=== PATIENT | female | born 1980 | race African-American/Black ===

== ENCOUNTER 2025-04-04 00:15 | Day surgery (SDC) | payer OTHER, SELFPAY ==
--- NOTE | 2025-03-28 12:42 | SUR.PREOP ---
[facility] has started construction of its new state of the art ER which will open Spring 2026. With this, we anticipate parking may be a challenge for some our surgical patients and families. Parking spaces are limited but are available for all Surgical, obstetrics, and ER patients sharing this lot. If you arrive and find you are having a hard time finding a parking space, please note that we understand the challenges, please drive around the hospital and park near Hospital Entrance 1. When you enter this entrance, you can ask a volunteer to direct or take you back to the surgical waiting area to check in. We appreciate everyone?s understanding of these expected challenges while we build for your future. Report to the Outpatient Waiting Room, entrance under the green pavilion located off [address], at time _830AM___ on date _04/04/25_. Planned Procedure Time:__1030AM__.? Time changes happen often and if your time is changed the preop area will call you the afternoon before. - You and your visitor will be asked to self-screen and do not enter if you have any COVID symptoms. Please call surgeon if you need to reschedule. - A mask is optional within the hospital at this time. Patients may have clear liquids (water, carbonated beverages, clear teas, apple juice) until 3 hours prior to surgery with a maximum of 20 ounces. - No food from midnight until time of surgery and no smoking, or chewing tobacco (or any form of nicotine). No chewing gum, candy or mints. Take only the following medications with a SIP of water on the morning of surgery: none DO NOT STOP ANY OF YOUR OTHER PRESCRIPTION MEDICATIONS PRIOR TO SURGERY EXCEPT THE FOLLOWING Hold all vitamins and supplements for 3 days per anesthesiologist. Medications to discontinue per physician ___none Date to take last dose__n/a Please no make-up, nail romansh, hairspray, perfume, deodorant, or body powder the day of surgery.? No jewelry (including any body piercings) or valuables the day of surgery, leave them at home.? Please take a shower or bath the night before, or the morning of, surgery with an antibacterial soap.? Wear comfortable, loose fitting clothing.? - Jewelry must be removed prior to entering the operating room.? Rings and piercings that are not removed may be cut off. - The hospital will not accept responsibility for valuables.? - Please leave all valuables, including medications, at home the day of surgery. If you are going home after surgery, a licensed drive away driver must drive you home.? - NO public transportation without another adult if you receive anesthesia. - We recommend that an adult stay with you for 24 hours following discharge. - We also recommend that you do not drive, make important decision, drink alcoholic beverages, or take any drugs that were not prescribed by your health care provider for at least 24 hours after your discharge time. Follow any additional instructions given to you from your surgeon. Telephone instructions given to __Manisha___and asked if any additional questions and then verbalized understanding. Patient advised to call surgeon office or pre surgery nurse liaison [phone] if any additional questions.
[2025-03-28 12:44] VITALS: BMI 33.3
[2025-04-04] VITALS (9 sets, daily range): BP systolic 118–137; BP diastolic 69–89; PULSE 61–79; RESP 10–16; TEMP 36.4–37.2; O2SAT 98–100; BMI 39.2
--- OUTSIDE RECORDS SUMMARY | 2025-04-04 00:18 | XMS_ITS | Clinical Summary ---
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
--- OUTSIDE RECORDS SUMMARY | 2025-04-04 00:18 | XMS_ITS | Clinical Summary ---
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 Name Role Phone Referring, Unknown MD Primary Care Provider Unav ailable Medications ibuprofen (ibuprofen) 200 mg tab/cap take 1 capsule by oral route every 6 hours as needed 0 0 09/15/2016 Active Family History Medical History Relation Name Comments Arthritis Other Family history of Arthritis; Cancer Other Family history of Cancer, unknown; Diabetes Other Family history of Diabetes mellitus; Gout Other Family history of Gout; Hypertension Other Family history of Hypertension; Kidney disease Other Family histor y of kidney problems; Seizures Other Family history of Seizure disorder; Relation Name Status Comments Other Social History Tobacco Use Types Packs/Day Years Used Date Smoking Tobacco: Never Assessed Comments Unknown Sex and Gender Information Value Date Recorded Sex Assigned at Not on file Legal Sex Female 9:33 AM CDT Gender Identity Not on file Sexual Orientation Not on file Obstetrics History Last Filed Vital Signs Vital Sign Reading Time Taken Comments Blood Pressure 119/83 01/16/2018 5:39 PM CDT Pulse 87 01/16/2018 5:39 PM CDT Temperature 36.8 C (98.3 F) 01/16/2018 5:39 PM CDT Respiratory Rate - - Oxygen Saturation 98% 01/16/2018 5:39 PM CDT Inhaled Oxygen Concentration - - Weight 99.8 kg (220 lb) 01/16/2018 5:39 PM CDT Height 170.2 cm (5' 7) 01/16/2018 5:39 PM CDT Body Mass Index 34.46 01/16/2018 5:39 PM CDT Plan of Treatment Health Maintenance Due Date Last Done Comments Breast Cancer Screening-Mammogram 1981 Cervical Cancer Screening 1981 Depression Screening 1981 Hepatitis C Screening 1981 DTaP/Tdap/Td Vaccine (1 - Tdap) 1992 Varicella Vaccines (1 of 2 - 13+ 2-dose series) 1994 Hepatitis B Screening 12/01/1999 Regular Well Visit/Exam 18-64 12/01/1999 HPV Vaccines (1 - 3-dose SCD M series) 2008 Covid-19 Vaccine (3 - 2024-2 6 season) 2025 02/20/2021, 01/30/2021 Influenza Vaccine (#1) 2025 Pneumococcal vaccine <65 Aged Out No longer eligible based on patient's age to complete this topic Insurance IDPA Care Teams Fuel Quality Tech Relationship Specialty Start Date End Date Referring, Unknown, PCP - General Pediatrics 02/12/18
--- OUTSIDE RECORDS SUMMARY | 2025-04-04 00:18 | XMS_ITS | Data Portability ---
Author Organization [facility], [facility] Address [address] [place] [address] [place] [address] Care Team Providers Care Blind Lacer Name Role Phone VANESSA TERRY Primary Care Provider Assessment No assessment recorded. Plan of Treatment Reminders Order Date Submit Date Provider Last Modified By Organization Details Last Modified Time Details Appointments SURG Salpingec heike 2024 10:30A Hadley GORDON MD Not available Not available Not available SURG POST OP 2024 03:30P Hadley GORDON MD Not available Not available Not available Lab test, urine 2024 025 [facility], [address], [address], [place], [address], 02/20/2025 10:09:34 unlisted lab - women's health swab, OMKAR 2024 025 [facility] (Lab), [address], [place], [address], 01/25/2025 15:58:37 25-hydrox yvitamin D2 + 25-hydrox yvitamin D3, QN, serum or plasma 2024 025 [facility] (Lab), [address], [place], [address], 01/25/2025 15:58:36 CBC w/ auto diff 2024 025 [facility] (Lab), [address], [place], [address], 01/25/2025 15:58:35 TSH, serum or plasma 2024 025 [facility] (Lab), [address] [facility], [place], [address], 01/25/2025 15:58:36 hormone panel, serum or plasma 2024 025 [facility] (Lab), [address] [facility], [place], [address], 01/25/2025 15:58:37 test, urine 2024 025 [facility], [address], [address], [place], [address], 01/24/2025 17:00:12 urinalysi s, dipstick 2023 024 [facility], [address], [address], [place], [address], 01/04/2024 17:03:55 test, urine [email or web address], [address], [address], [place], [address], 01/04/2024 15:59:44 Referral None recorded. Procedures None recorded. Surgeries None recorded. Imaging US, pelvis [address], [address], [address], [place], [address], 02/02/2025 22:40:51 US, transvagi nal [address], [address], [address], [place], [address], 02/02/2025 22:40:51 Medication Orders Slynd 4 mg (28) tablet 2024 025 [facility] #[id number], [address], [place], [place], [id number], 02/17/2025 12:21:16 nystatin 100,000 unit/gram topical ointment 2024 025 [facility] #[id number], [address], [place], [place], [id number], 01/24/2025 17:07:20 triamcino lone acetonide 0.1 % topical ointment 2024 025 [facility] #[id number], [address] [facility], [place], [place], [phone], 01/24/2025 17:07:19 fluconazo le 150 mg tablet 2024 025 [facility] #[id number], [address] [facility], [place], [place], [id number], 02/07/2025 17:22:13 Mirena 21 mcg/24 hr (up to 8 years) 52 mg intrauter ine device 2023 024 [email or web address] Not available 01/04/2024 16:32:18 Patient TargetsNo targets recorded. Patient InstructionsNo instructions recorded. Reason for Referral None Reported. Results Created Date Observation Date Name Description Value Unit Range Abnormal Flag Note LastModifiedBy Organization Detail LastModifiedTime 01/04/2001/04/2024 CT/GC AND TRICH OMONA S VAGIN RANJAN (RRNA ), URINE chlamydia trachomatis, PCR Negati ve negati ve Not Available [facility] (Lab) [address], [place], [address], 01/05/2024 15:16:48 01/04/20 24 01/04/2024 CT/GC AND TRICH OMONA S VAGIN RANJAN (RRNA ), URINE neisseria gonorrhoeae, PCR Negati ve negati ve Not Available [facility] (Lab) [address], [place], [address], 01/05/2024 15:16:48 01/04/20 24 01/04/2024 CT/GC AND TRICH OMONA S VAGIN RANJAN (RRNA ), URINE trichomonas vaginalis ribosomal RNA (rrna) Negati ve negati ve Not Available [facility] (Lab) [address], [place], [address], 01/05/2024 15:16:48 01/04/20 24 01/04/2024 pregn eric test, urine HCG negati ve Not Available [facility] [address], [place], [address], 01/04/2024 15:48:08 01/25/20 25 01/24/2025 CBC W/DIF F WBC 7.4 10'3/ uL 3.5-10 .5 Not Available [facility] (Lab) [address], [place], [address], 01/25/2025 15:58:35 01/25/20 25 01/24/2025 CBC W/DIF F RBC 4.45 10'6/ uL (based on docume nted legal sex) 3.80-5 .20 Not Available [facility] (Lab) [address], [place], [address], 01/25/2025 15:58:35 01/25/20 25 01/24/2025 CBC W/DIF F HGB 12.6 g/dL (based on docume nted legal sex) 11.6-1 5.4 Not Available [facility] (Lab) [address], [place], [address], 01/25/2025 15:58:35 01/25/20 25 01/24/2025 CBC W/DIF F HCT 36.1 % (based on docume nted legal sex) 34.0-4 5.0 Not Available [facility] (Lab) [address], [place], [address], 01/25/2025 15:58:35 01/25/20 25 01/24/2025 CBC W/DIF F MCV 81.1 fL 80.0-9 9.0 Not Available [facility] (Lab) [address], [place], [address], 01/25/2025 15:58:35 01/25/20 25 01/24/2025 CBC W/DIF F MCH 28.3 pg 27.0-3 4.0 Not Available [facility] (Lab) [address], [place], [address], 01/25/2025 15:58:35 01/25/20 25 01/24/2025 CBC W/DIF F MCHC 34.9 g/dL 32.0-3 5.5 Not Available [facility] (Lab) [address], [place], [address], 01/25/2025 15:58:35 01/25/20 25 01/24/2025 CBC W/DIF F RDW 13.3 % 11.0-1 5.0 Not Available [facility] (Lab) [address], [place], [address], 01/25/2025 15:58:35 01/25/20 25 01/24/2025 CBC W/DIF F plt 295 10'3/ uL 150-40 0 Not Available [facility] (Lab) [address], [place], [address], 01/25/2025 15:58:35 01/25/20 25 01/24/2025 CBC W/DIF F MPV 11.3 fL 8.8-12 .1 Not Available [facility] (Lab) [address], [place], [address], 01/25/2025 15:58:35 01/25/20 25 01/24/2025 CBC W/DIF F NRBC's 0.0 % 0.0 Not Available [facility] (Lab) [address], [place], [address], 01/25/2025 15:58:35 01/25/20 25 01/24/2025 CBC W/DIF F absolute NRBCs 0.0 10'3/ uL no refere nce range establ ished Not Available [facility] (Lab) [address] [facility], [place], [address], 01/25/2025 15:58:35 01/25/20 25 01/24/2025 CBC W/DIF F neutrophils 43.7 % 34.0-7 3.0 Not Available [facility] (Lab) [address] [facility], [place], [address], 01/25/2025 15:58:35 01/25/20 25 01/24/2025 CBC W/DIF F lymphocytes 43.6 % 15.0-5 0.0 Not Available [facility] (Lab) [address] [facility], [place], [address], 01/25/2025 15:58:35 01/25/20 25 01/24/2025 CBC W/DIF F monocytes 10.8 % 1.0-15 .0 Not Available [facility] (Lab) [address] [facility], [place], [address], 01/25/2025 15:58:35 01/25/20 25 01/24/2025 CBC W/DIF F eosinophils 0.9 % 0.0-8. 0 Not Available [facility] (Lab) [address] [facility], [place], [address], 01/25/2025 15:58:35 01/25/20 25 01/24/2025 CBC W/DIF F basophils 0.7 % 0.0-2. 0 Not Available [facility] (Lab) [address] [facility], [place], [address], 01/25/2025 15:58:35 01/25/20 25 01/24/2025 CBC W/DIF F immature granulocytes 0.3 % no define d refere nce range Immat ure Granu locyt es (IG) repre sents autom ated enume ratio n of Metam yeloc ytes, Myelo cytes and Promy elocy hammad when IG is < 5%. Blast s are not inclu ded in IG and repor stacie separ ately if prese nt. Not Available [facility] (Lab) [address] [facility], [place], [address], 01/25/2025 15:58:35 01/25/20 25 01/24/2025 CBC W/DIF F absolute neutrophils 3.2 10'3/ uL 1.5-8. 0 Not Available [facility] (Lab) [address] [facility], [place], [address], 01/25/2025 15:58:35 01/25/20 25 01/24/2025 CBC W/DIF F absolute lymphocytes 3.2 10'3/ uL 1.0-4. 0 Not Available [facility] (Lab) [address] [facility], [place], [address], 01/25/2025 15:58:35 01/25/20 25 01/24/2025 CBC W/DIF F absolute monocytes 0.8 10'3/ uL 0.2-1. 0 Not Available [facility] (Lab) [address] [facility], [place], [address], 01/25/2025 15:58:35 01/25/20 25 01/24/2025 CBC W/DIF F absolute eosinophils 0.1 10'3/ uL 0.0-0. 6 Not Available [facility] (Lab) [address] [facility], [place], [address], 01/25/2025 15:58:35 01/25/20 25 01/24/2025 CBC W/DIF F absolute basophils 0.1 10'3/ uL 0.0-0. 3 Not Available [facility] (Lab) [address] [place], [address], 01/25/2025 15:58:35 01/25/20 25 01/24/2025 CBC W/DIF F absolute immature granulocytes 0.0 10'3/ uL 0.00-0 .10 Refer ence range s for nonbi nary/ inter sex or unspe cifie d gende r patie nts have not been estab lishe d. Mayi e refer to the follo wing table for range s estab lishe d for cisge nder patie nts and evalu ate in the clini sadie linda xt of the indiv idual patie nt: https ://kareem and book. nm.or g/gen derx Not Available [facility] (Lab) [address] [facility], [place], [address], 01/25/2025 15:58:35 01/25/2001/24/2025 TSH, REFLE X FREE T4 TSH 2.34 uIU/m L 0.30-5 .33 Not Available [facility] (Lab) [address] [facility], [place], [address], 01/25/2025 15:58:36 01/25/20 25 01/24/2025 VITAM IN D, 25-OH (TOTA L D2/D3 ) vitamin D, 25-hydroxy, total 17.7 NG/mL 30.0-1 00.0 low Sugge stive of Defic iency : <20 ng/mL Sugge stive of Insuf ficie ncy: 20-29 ng/mL Sugge stive of Suffi cienc y: 30-10 0 ng/mL Sugge stive of Toxic ity: >150 ng/mL Not Available [facility] (Lab) [address] [facility], [place], [address], 01/25/2025 15:58:36 01/25/20 25 01/24/2025 FSH, LH, ESTRA DIOL estradiol 85.8 pg/mL This assay was perfo rmed using [employer] ratio n reage nts and test kits. Value s obtai zhanna with other assay metho ds or kits canno t be used inter holt eably . Femal e Estra diol Range s: Folli cular phase 12.4- 233 pg/mL Ovula tion phase 41.0- 398 pg/mL Lutea l phase 22.3- 341 pg/mL Postm enopa usal <5-13 8 pg/mL Healt hy Pregn ant Women 1st Trime ster 154-3 243 pg/mL 2nd Trime ster 1561- 67778 pg/mL 3rd Trime ster 8525- >3000 0 pg/mL Not Available [facility] (Lab) [address] [facility], [place], [address], 01/25/2025 15:58:36 01/25/20 25 01/24/2025 FSH, LH, ESTRA DIOL FSH 2.0 mIU/m L This assay was perfo rmed using [employer] reage nts and test kits. Value s obtai zhanna with other assay metho ds or kits canno t be used inter holt eably . Femal es Folli cular : 3.5-1 2.5 mIU/m L Ovula tion: 4.7-2 1.5 mIU/m L Lutea l: 1.7-7 .7 mIU/m L Postm enopa use: 25.8- 134.8 mIU/m L Not Available [facility] (Lab) [address] [facility], [place], [address], 01/25/2025 15:58:36 01/25/20 25 01/24/2025 FSH, LH, ESTRA DIOL LH 6.0 mIU/m L This assay was perfo rmed using [employer] reage nts and test kits. Value s obtai zhanna with other assay metho ds or kits canno t be used inter holt eably . Femal es Mid-F ollic ular: 2.4-1 2.6 mIU/m L Mid-C ycle: 14.0- 95.6 mIU/m L Mid-L uteal : 1.0-1 1.4 mIU/m L Postm enopa use: 7.7-5 8.5 mIU/m L Not Available [facility] (Lab) [address] [facility], [place], [address], 01/25/2025 15:58:36 01/25/20 25 01/24/2025 WOMEN 'S HEALT H SWAB, OMKAR bacterial vaginosis (bv), tma Negati ve negati ve This test detec ts ribos omal RNA from bacte mich assoc iated with bacte rial vagin osis (BV), inclu ding Lacto bacil chance (L. gasse ri, L. crisp atus and L. jense wale), Gardn erell a vagin ranjan, and Atopo bium vagin ae by Trans cript ion-M ediat ed Ampli ficat ion (TMA) . A singl e quali tativ e resul t is repor stacie based on instr ument softw are to deter mine BV posit radha or negat radha statu s. Not Available [facility] (Lab) [address] [facility], [place], [address], 01/25/2025 15:58:37 01/25/20 25 01/24/2025 WOMEN 'S HEALT H SWAB, OMKAR kimmie species, tma Positi ve negati ve abnormal Not Available [facility] (Lab) [address] [facility], [place], [address], 01/25/2025 15:58:37 01/25/20 25 01/24/2025 WOMEN 'S HEALT H SWAB, OMKAR kimmie glabrata, tma Negati ve negati ve Not Available [facility] (Lab) [address] [place], [address], 01/25/2025 15:58:37 01/25/20 25 01/24/2025 WOMEN 'S HEALT H SWAB, OMKAR trichomonas vaginalis, tma Negati ve negati ve This assay tests for and diffe renti ates siddharth en Enma da glabr janes, the Enma da speci es group (C. albic ans, C. tropi calis , C. parap eva is, C. dubli ni is), and Trich omona s vagin ranjan by Trans cript ion-M ediat ed Ampli ficat ion (TMA) . Not Available [facility] (Lab) [address], [place], [address], 01/25/2025 15:58:37 01/25/2001/24/2025 pregn eric test, urine HCG negati ve Not Available [facility] [address], [place], [address], 01/24/2025 17:00:05 02/21/2002/20/2025 pregn eric test, urine HCG negati ve Not Available [facility] [address], [place], [address], 02/20/2025 10:07:43 02/03/20 25 02/02/2025 US, pelvi s No observ ation record ed. [email or web address] [facility] [address], [place], [address], 02/02/2025 18:28:18 02/03/20 25 02/02/2025 US, trans vagin al No observ ation record ed. [email or web address] [facility] [address], [place], [address], 02/02/2025 18:28:27 02/03/20 25 02/02/2025 US, pelvi s No observ ation record ed. tracee Knowles [address], [place], [address], 02/09/2025 11:20:41 Result Notes None recorded. Problems Name Problem SNOMED Code Status Onset Date Resolution Date Notes Provider Name and Address Organization Details Recorded Time Leukopen ia [id number] Completed 201006/13/2020 LEUKOCYT OPENIA NOS;Prac srinivas ID: 0001 Lucrecia reddy [place] - [facility] 10:27:47 Abnormal weight gain [id number] Completed 201006/13/2020 Abnormal weight gain;Rec orded Elsewher e: No [facility] EHR Customer Quality Engineer suze: N Practi ce ID: [id number] Reji lable Time: 10:30:00 AM Lucrecia reddy, [facility] 10:27:13 Screenin g for malignan t neoplasm of cervix Completed 201006/13/2020 Screenin g for malignan t neoplasm s of the cervix;R ecorded Elsewher e: No Locat ion: [facility] S ource: EHR Customer Quality Engineer suze: N Practi ce ID: [id number] Reji lable Time: 10:30:00 AM Lucrecia reddy, [facility] 10:28:04 Ill-defi zhanna intestin al infectio n Completed 201106/13/2020 No Show Fee;Prac srinivas ID: 0001 Lucrecia Eisenberg [facility], [facility] 10:27:38 Adult health examinat ion Completed 201106/13/2020 Routine Medical Exam;Rec orded Elsewher e: No Locat ion: [facility] S ource: EHR Customer Quality Engineer suze: N Practi ce ID: [id number] Reji lable Time: 08:58:00 AM Lucrecia reddy, [facility] 10:27:19 Vaginiti s and vulvovag initis Completed 201106/13/2020 Vaginiti s;Record ed Elsewher e: No Locat ion: [facility] S ource: EHR Customer Quality Engineer usze: N Practi ce ID: [id number] Reji lable Time: 08:58:00 AM Lucrecia reddy, [facility] 10:28:20 Pain of breast [id number] Completed 201106/13/2020 Mastodyn ia;Recor ded Elsewher e: No Locat ion: [facility] S ource: EHR Customer Quality Engineer suze: Y Practi ce ID: [id number] Reji lable Time: 03:15:00 PM Lucrecia reddy [facility] 10:27:55 Leukocyt osis [id number] Completed 201206/13/2020 LEUKOCYT OSIS NOS;Ba rded Elsewher e: No Locat ion: [facility] S ource: EHR Customer Quality Engineer suze: Baljit Lozano ce ID: [id number] Reji lable Time: 03:45:00 PM Lucrecia reddy [facility] 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 S ource: EHR Customer Quality Engineer suze: Baljit Lozano ce ID: [id number] Reji lable Time: 02:15:00 PM Lucrecia Eisenberg [facility] 10:27:22 Venereal disease screenin g Completed 201306/13/2020 Screenin g exam for STD;Ba rded Elsewher e: No Locat ion: [facility] S ource: EHR Customer Quality Engineer suze: Baljit Lozano ce ID: [id number] Reji lable Time: 11:30:00 AM Lucrecia reddy [facility] 10:28:22 Urinary tract infectio us disease [id number] Completed 201306/13/2020 UTI;Ba rded Elsewher e: No Locat ion: [facility] S ource: EHR Customer Quality Engineer suze: Baljit Lozano ce ID: [id number] Reji lable Time: 09:15:00 AM Lucrecia reddy [facility] 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 1 10:27:49 Increase d frequenc y of urinatio n [id number] Completed 201306/13/2020 Urinary frequenc y;Record ed Elsewher e: No Locat ion: [facility] S ource: EHR Customer Quality Engineer suze: N Practi ce ID: [id number] Reji lable Time: 09:15:00 AM Lucrecia Elgin [facility], [facility] 10:27:41 Removal of intraute rine device Completed 201306/13/2020 REMOVAL OF IUD;Ba rded Elsewher e: No [facility]: EHR Customer Quality Engineer suze: N Thierryti ce ID: [id number] Reji lable Time: 10:36:00 AM Lucrecia Elgin [facility], [facility] 10:28:03 Threaten ed miscarri age [id number] Completed 201306/13/2020 Threaten ed ;Recorde d Elsewher e: No [facility] ource: EHR Customer Quality Engineer suze: N Practi ce ID: [id number] Reji lable Time: 10:36:00 AM Lucrecia Elgin reddy, [facility] 1 10:28:16 Antenata l screenin g Completed 201306/13/2020 ANTENATA L SCREENIN G NEC;Ba rded Elsewher e: No [facility]: EHR Customer Quality Engineer suze: N Thierryti ce ID: [id number] Reji lable Time: 09:15:00 AM Lucrecia reddy, [facility] 10:27:20 Female genital organ symptoms [id number] Completed 201306/13/2020 Pelvic pain;Rec orded Elsewher e: No Locat ion: [facility] S ource: EHR Customer Quality Engineer suze: N Thierryti ce ID: 0001 Reji lable Time: 10:36:00 AM Lucrecia reddy, [facility] 10:27:33 Pregnanc y test positive [id number] Completed 201306/13/2020 Pregnanc y examinat ion or test, positive result;R ecorded Elsewher e: No Locat ion: [facility] S ource: EHR Customer Quality Engineer suze: Baljit Lozano ce ID: [id number] Reji lable Time: 09:15:00 AM Lucrecia reddy, [facility] 10:27:59 Completed 201306/13/2020 ;Recorde d Elsewher e: No Locat ion: [facility] S ource: EHR Customer Quality Engineer suze: Baljit Lozano ce ID: [id number] Reji lable Time: 04:00:00 PM Lucrecia reddy, [facility] 10:27:15 Pyelonep hritis [id number] Completed 201406/13/2020 Pyelonep hritis;R ecorded Elsewher e: No Locat ion: [facility] S ource: EHR Customer Quality Engineer suze: N Thierryti ce ID: [id number] Reji lable Time: 04:00:00 PM Lucrecia reddy [facility] 10:28:01 Pregnanc y test negative [id number] Completed 201406/13/2020 Pregnanc y examinat ion or test, negative result;R ecorded Elsewher e: No Locat ion: [facility] S ource: EHR Customer Quality Engineer suze: Baljit Lozano ce ID: [id number] Reji lable Time: 04:00:00 PM Lucrecia reddy, [facility] 10:27:57 Speciali zed medical examinat ion Completed 201406/13/2020 Gynecolo gical Examinat ion;Ba rded Elsewher e: No Locat ion: [facility] S ource: EHR Customer Quality Engineer suze: N Thierryti ce ID: 0001 Reji lable Time: 02:00:00 PM Lucrecia reddy, [facility] 1 10:28:10 Family planning surveill ance Completed 201406/13/2020 Contrace ptive surveill ance, unspecif ied;Ba rded Elsewher e: No Locat ion: [facility] S ource: EHR Customer Quality Engineer suze: N Blake ce ID: [id number] Reji lable Time: 11:45:00 AM Lucrecia reddy, [facility] 10:27:31 Microsco pic hematuri a [id number] Completed 201406/13/2020 MICROSCO PIC HEMATURI A;Record ed Elsewher e: No Locat ion: [facility] S ource: [facility] suze: Baljit Lozano ce ID: [id number] Reji lable Time: 11:45:00 AM Lucrecia reddy [facility] 10:27:53 Clinical finding Completed 201406/13/2020 Encounte r for surveill ance of injectab le contrace ptive;Pr actice ID: [id number] Lucrecia reddy, [facility] 10:27:24 Contrace ptive sheath status [id number] Completed 201506/13/2020 Encounte r for initial prescrip tion of other contrace ptives;R ecorded Elsewher e: No Locat ion: [facility] S ource: EHR Customer Quality Engineer suze: N Practi ce ID: [id number] Reji lable Time: 03:45:00 PM Lucrecia reddy [facility] 1 10:27:27 Clinical finding Completed 201506/13/2020 Presence of (intraut erine) contrace ptive device;R ecorded Elsewher e: No Locat ion: Raquel batista [facility] S ource: EHR Customer Quality Engineer suze: N Practi ce ID: [id number] Reji lable Time: 01:30:00 PM Lucrecia reddy, [facility] 1 10:27:26 Insertio n of intraute rine contrace ptive device Completed 201506/13/2020 Encounte r for insertio n of intraute rine contrace ptive device;P ractice ID: [address] [facility] 10:27:44 Surveill ance of contrace ption Completed 201506/13/2020 Encounte r for surveill ance of contrace ptives, unspecif ied;Ba rded Elsewher e: No [facility] S ource: EHR Customer Quality Engineer suze: N Thierryti ce ID: [id number] Reji lable Time: 11:00:00 AM Lucrecia reddy [facility] 10:28:13 Pain in female genitali a Completed 201506/13/2020 Dysmenor vaishnavi;Rec orded Elsewher e: No Locat ion: [facility] S ource: EHR Customer Quality Engineer suze: N Practi ce ID: [id number] Reji lable Time: 01:15:00 PM Lucrecia reddy [facility] 10:27:[address] Concept Completed 201606/13/2020 Encntr for salmon troll fisher exam (general ) (routine ) w/o abn findings ;Recorde d Elsewher e: No Locat ion: [facility] S ource: EHR Customer Quality Engineer suze: N Thierryti ce ID: [id number] Reji lable Time: 11:30:00 AM Lucrecia reddy [facility] 1 10:28:[address] Concept Completed 201606/13/2020 Encntr for general adult medical exam w/o abnormal findings ;Recorde d Elsewher e: No Locat ion: [facility] S ource: EHR Customer Quality Engineer suze: N Thierryti ce ID: 0001 Reji lable Time: 11:30:00 AM Lucreciajenny Eisenberg [facility] 1 10:28:06 Acute vaginiti s [id number] Completed 201706/13/2020 Acute vulvovag initis;R ecorded Elsewher e: No Locat ion: [facility] S ource: EHR Customer Quality Engineer suze: N Thierryti ce ID: 0001 Reji lable Time: 10:30:00 AM Lucrecia reddy [facility] 1 10:27:17 Blood leukocyt e number above referenc e range [id number] Completed 201806/13/2020 Elevated white blood cell count, unspecif ied;Ba rded Elsewher e: No Locat ion: [facility] S ource: EHR Customer Quality Engineer suze: N Thierryti ce ID: [id number] Reji lable Time: 02:00:00 PM Lucrecia reddy [facility] 1 10:27:39 Infectio n by Trichomo kin [id number] Completed 201806/13/2020 Trichomo niasis, unspecif ied;Ba rded Elsewher e: No Locat ion: [facility] S ource: EHR Customer Quality Engineer suze: N Thierryti ce ID: [id number] Reji lable Time: 12:33:07 PM Lucreciajenny Eisenberg [facility] 1 10:27:43 Syphilis test finding [id number] Completed 201906/13/2020 Encounte r for STD screenin g;Record ed Elsewher e: No Locat ion: [facility] S ource: EHR Customer Quality Engineer suze: N Practi ce ID: [id number] Reji lable Time: 01:00:00 PM Lucrecia reddy [facility] 10:28:15 Finding of desire for urinatio n [id number] Completed 201906/13/2020 Urgency of urinatio n;Record ed Elsewher e: No Locat ion: [facility] S ource: EHR Customer Quality Engineer suze: N Practi ce ID: [id number] Reji lable Time: 01:00:00 PM Lucrecia reddy, [facility] 10:27:36 Evaluati on finding Completed 201906/13/2020 Hematuri a, unspecif ied;Ba rded Elsewher e: No Locat ion: [facility] S ource: EHR Customer Quality Engineer suze: N Practi ce ID: [id number] Reji lable Time: 09:00:00 AM Lucrecia reddy, [facility] 10:27:29 Recurren t urinary tract infectio n [id number] Completed 202003/25/2021 Ellie Mathews [facility] 17:03:20 Problem Notes None recorded. Procedures Surgical History Date Name Laterality Status Provider Name and Address Organization Details Recorded Time 02/18/20 25 IUD Removal completed SIXTO Franco [address], [place], [address], [facility] 02/20/2025 10:07:21 01/04/20 24 IUD Removal completed SIXTO Franco [address], [place], [address], [facility] 01/04/2024 16:49:08 01/04/20 24 IUD Insertion completed SIXTO Franco [address], [place], [address], [facility] 01/04/2024 16:49:14 11/17/19 24 Date of Last Pap Smear completed Purnima Laguna [facility] 02/17/2025 11:24:29 07/09/19 19 complete repair of rotator cuff completed [facility] 11/25/2022 14:37:20 06/08/[address] [facility] 11/25/2022 14:37:08 06/08/19 08 Dilation and Curettage completed [facility] 11/25/2022 14:36:47 Imaging Results None recorded. Procedure Notes None recorded. Medical Equipment None Reported. Allergies No known drug allergies Medications Name Sig Start Date Stop Date Status Note LastModified by Organization Details LastModified Time amoxicill in 500 mg capsule take 1 capsule (500MG) by oral route every 8 hours for 10 days 05/29 completed Prescrib ed Elsewher e: No [facility]at [facility] odify By: mickey stokes DateTime : 05/20/20 11 10:30:00 AM Not Available Not Available Not Available Mirena 21 mcg/24 hr (up to 8 years) 52 mg intrauter ine device Take 1 device by intraute rine route. 2023 active office supplies used, pt handled well was placed 01/04/24 needs replaced by 01/04/32 Not Available Not Available Not Available Augmentin 875 mg-125 mg tablet take 1 tablet by oral route every 12 hours for 10 days 10/22 completed Prescrib ed Elsewher e: No [facility] By: vilma stokes DateTime : 10/02/19 16 12:25:12 PM Not Available Not Available Not Available clindamyc in HCl 300 mg capsule TAKE 1 CAPSULE BY MOUTH EVERY 12 HOURS FOR 7 DAYS 03/25 completed Not Available Not Available Not Available cefaclor 500 mg capsule take 1 capsule (500MG) by oral route 3x daily for 7 days 12/16 completed Prescrib ed Elsewher e: No Locat ion: [facility] [address] odify By: byron sigalaunter DateTime : 08/03/19 13 08:45:47 AM Not Available Not Available Not Available nystatin 100,000 unit/gram topical ointment APPLY TO THE AFFECTED AREA(S) BY TOPICAL ROUTE 2 TIMES PER DAY FOR 7 days active Not Available Not Available No t Available fluconazo le 150 mg tablet TAKE 1 TABLET BY MOUTH 1 TIME NOW. REPEAT IN 7 DAYS IF SYMPTOMS PERSIST 02/07 completed Not Available Not Available Not Available Lotrisone 1 %-0.05 % topical cream apply by topical route 2 times every day for 2 weeks to the affected and surround ing areas of skin in the morning and evening 07/20 completed Prescrib ed Elsewher e: No Locat ion: [facility] [address] odify By: lbhuy tz Encou nter DateTime : 07/07/19 19 09:30:00 AM Not Available Not Available Not Available fluconazo le 200 mg tablet TAKE 1 TABLET BY MOUTH EVERY OTHER DAY 01/03 completed Not Available Not Available Not Available metronida zole 0.75 % (37.5 mg/5 gram) vaginal gel INSERT 1 APPLICAT ORFUL VAGINALL Y EVERY DAY AT BEDTIME FOR 5 DAYS 11/16 completed Not Available Not Available Not Available Pyridium 100 mg tablet take 1 tablet by oral route 3 times every day after meals as needed 06/13 completed Prescrib ed Elsewher e: No Locat ion: [facility] [address] odify By: [email or web address] ich Enco unter DateTime : 07/16/19 20 09:00:00 AM Not Available Not Available Not Available Zithromax Z-Ronald 250 mg tablet take 2 tablet (500MG) by oral route every day for 1 day then 1 tablet (250 mg) by oral route once daily for 4 days 06/10 completed Prescrib ed Elsewher e: No Locat ion: [facility] bat[facility] odify By: cmedical Encount er DateTime : 06/06/20 13 10:23:49 AM Not Available Not Available Not Available Suprax 400 mg tablet take 1 tablet (400MG) by oral route every day 12/26 completed Prescrib ed Elsewher e: No Locat ion: [facility] odify By: cmedical Encount er DateTime : 04/12/20 13 10:59:59 AM Not Available Not Available Not Available metronida zole 500 mg tablet TAKE 1 TABLET BY MOUTH TWICE DAILY FOR 7 DAYS 11/16 completed Not Available Not Available Not Available amoxicill in 500 mg tablet take 1 tablet by oral route every 8 hours 11/13 completed Prescrib ed Elsewher e: No Locat ion: [facility] odify By: amkyves sigalaunter DateTime : 04/19/20 14 09:15:00 AM Not Available Not Available Not Available nystatin- triamcino lone 100,000 unit/gram -0.1 % topical ointment APPLY TOPICALL Y TO THE AFFECTED AREA TWICE DAILY FOR 5 DAYS active Not Available Not Available No t Available Zofran 4 mg tablet take 2 tablet by oral route 2 times every day as needed for nausea 06/13 completed Prescrib ed Elsewher e: No [facility] odify By: cfrjeremy Thompsono unter DateTime : 07/12/19 20 01:00:00 PM Not Available Not Available Not Available Depo-Prov era 150 mg/mL intramusc ular suspensio n inject 1 millilit er by intramus cular route every 3 months 09/03 completed Prescrib ed Elsewher e: No Locat ion: [facility] odify By: smcalexander Dang r DateTime : 05/28/20 15 02:15:03 PM Not Available Not Available Not Available Duricef 500 mg capsule take 2 capsule (1G) by oral route every day 07/28 completed Prescrib ed Elsewher e: No Locat ion: [facility] odify By: mickey Batista ncounter DateTime : 11/18/19 12 03:26:27 PM Not Available Not Available Not Available Cipro 500 mg tablet take 1 tablet by oral route every 12 hours 01/13 completed Prescrib ed Elsewher e: No Locat ion: [facility] odify By: smcaley Alton r DateTime : 01/01/20 16 09:50:28 AM Not Available Not Available Not Available triamcino lone acetonide 0.1 % topical ointment APPLY THIN LAYER TOPICALL Y TO THE AFFECTED AREA TWICE DAILY FOR 7 DAYS active Not Available Not Available No t Available Macrodant in 50 mg capsule take 1 capsule by oral route every day 10/22 completed Prescrib ed Elsewher e: No Locat ion: [facility] odify By: amjoey Batista ncounter DateTime : 09/04/19 16 03:45:00 PM Not Available Not Available Not Available Macrodant in 100 mg capsule take 1 capsule by oral route every 6 hours for 7 days with food 10/28 completed Prescrib ed Elsewher e: No [facility] odify By: diana laws DateTime : 10/23/19 16 09:45:00 AM Not Available Not Available Not Available ergocalci ferol (vitamin D2) 1,250 mcg (50,000 unit) capsule TAKE 1 CAPSULE BY MOUTH EVERY WEEK DIRECTED 01/24 completed Not Available Not Available Not Available ketoconaz ole 2 % topical cream apply by topical route every day to the affected area(s) 05/18 completed Prescrib ed Elsewher e: No [facility] odify By: debbie laws DateTime : 01/30/20 18 10:30:00 AM Not Available Not Available Not Available Rocephin 500 mg solution for injection inject 1 (500MG) by intramus cular route every day for 1 day 04/20 completed Prescrib ed Elsewher e: No Locat ion: [facility] odify By: cmedical Encount er DateTime : 04/19/20 13 01:50:51 PM Not Available Not Available Not Available Bactrim DS 800 mg-160 mg tablet take 1 tablet by oral route every 12 hours 02/28 completed Prescrib ed Elsewher e: No Locat ion: [facility] odify By: debbie laws DateTime : 11/14/19 15 01:30:00 PM Not Available Not Available Not Available Monistat Dual-Ronald 200 mg-2 % (9 gram) vaginal kit insert 1 Supposit ory by Vaginal route every day 07/28 completed Prescrib ed Elsewher e: No [facility] By: mickey stokes DateTime : 11/12/19 12 08:58:49 AM Not Available Not Available Not Available Depo-Prov era 150 mg/mL intramusc ular syringe inject 1 millilit er by intramus cular route every 3 months 02/28 completed Prescrib ed Elsewher e: No Locat ion: [facility] [address] odify By: debbie Matthew ter DateTime : 11/30/19 15 01:44:28 PM Not Available Not Available Not Available azithromy ulises 500 mg tablet take 2 tablet by oral route once 12/25 completed Not Available Not Available Not Available nitrofura ntoin monohydra te/macroc rystals 100 mg capsule TAKE 1 CAPSULE BY MOUTH TWICE DAILY FOR 5 DAYS 01/03 completed Not Available Not Available Not Available cholecalc iferol (vitamin D3) 1,250 mcg (50,000 unit) capsule Take 1 capsule( s) every week by oral route. 2024 active Not Available Not Available Not Avai lable Slynd 4 mg (28) tablet TAKE 1 TABLET BY MOUTH EVERY DAY active Not Available Not Available No t Available COVID-19 test specimen collectio n TEST DIRECTED 03/26 completed Not Available Not Available Not Available Vitals Date Recorded Body height Body mass index (BMI) Body weight Systolic And Diastolic Provider Name and Address Organization Details Last Updated DateTime 01/04/2024 170.18 cm 41 kg/m2 229358.2 g 124/84 mm[Hg] Mamta Nicholas [facility] 01/04/2024 15:49:54 Date Recorded Body height Body mass index (BMI) Body weight Systolic And Diastolic Provider Name and Address Organization Details Last Updated DateTime 01/24/2025 170.18 cm 41.3 kg/m2 689082.39 g 118/78 mm[Hg] [facility] 01/24/2025 16:38:49 Date Recorded Body height Body mass index (BMI) Body weight Systolic And Diastolic Provider Name and Address Organization Details Last Updated DateTime 02/07/2025 170.18 cm 41.3 kg/m2 023108.39 g 117/78 mm[Hg] [facility] 02/07/2025 17:21:50 Date Recorded Body height Body mass index (BMI) Body weight Systolic And Diastolic Provider Name and Address Organization Details Last Updated DateTime 02/17/2025 170.18 cm 41.3 kg/m2 979331.39 g 124/72 mm[Hg] Purnima Laguna [facility] 02/17/2025 11:24:05 Social History Question Answer Notes LastModified by Organizat ion Details LastModified Time Tobacco Smoking Status Never Smoker Yoly reddy, [facility] 11/25/2022 14:32:05 Do You Have An Advance Directive? No Information n ot available 05/23/2021 Are You Blind Or Do You Have Difficulty Seeing? No Information n ot available 03/25/2021 What Is Your Level Of Caffeine Consumption? Moderate [email or web address] Information not available 11/25/2022 How Much Tobacco Do You Chew? None Information not available 05/23/2021 In The 14 Days Before Symptom Onset, Have You Had Close Contact With A Laboratory-confirm ed COVID-19 While That Case Was Ill? No Information n ot available 05/23/2021 In The 14 Days Before Symptom Onset, Have You Had Close Contact With A Person Who Is Under Investigation For COVID-19 While That Person Was Ill? No Information not available 05/23/2021 Have You Been To An Area Known To Be High Risk For COVID-19? No Information not available 05/23/2021 Are You Deaf Or Do You Have Serious Difficulty Hearing? No Information not available 03/25/2021 What Type Of Diet Are You Following? REGULAR Information n ot available 03/25/2021 What Is The Highest Grade Or Level Of School You Have Completed Or The Highest Degree You Have Received? [id number] Information not available 05/23/2021 Are There Any Guns Present In Your Home? No Information not available 05/23/2021 Do You Use Protection During Sex? No Information not available 05/23/2021 Do You Use Your Seat Belt Or Car Seat Routinely? Yes Information not available 03/25/2021 Do You Have Smoke And Carbon Monoxide Detectors In Your Home? Yes Information not available 03/25/2021 How Much Tobacco Do You Smoke? No Information not available 05/23/2021 Do You Use Sunscreen Routinely? No [email or web address] Information not available 11/25/2022 Has Tobacco Cessation Counseling Been Provided? No [email or web address] Information not available 11/25/2022 Have You Used IV Drugs? No Information not available 05/23/2021 Do You Have Difficulty Walking Or Climbing Stairs? No [email or web address] Information not available 11/25/2022 Sex: Unknown Functional Status Question Answer Note LastModified by Organizat ion Details LastModified Time Do you use any illicit or recreational drugs? No Information not available 03/25/2021 Do you or have you ever used any other forms of tobacco or nicotine? No [email or web address] Information not available 11/25/2022 What is your level of alcohol consumption? None Information not available 12/26/2019 Are you able to walk independently without assistance or assistive devices? [email or web address] Information not available 03/25/2021 Are you able to care for yourself independently? 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 No [email or web address] Information not available 11/25/2022 What is your exercise level? None Information not available 12/26/2019 Mental Status Question Answer Note LastModified by Organization D etails LastModified Time Do you feel stressed (tense, restless, nervous, or anxious, or unable to sleep at night)? [id number] Information not available 05/23/2021 Family History Relationship Description Onset Age of this Age Resolved Age Notes LastModified by Organization Details LastModified Time Maternal Grandmother Diabetes mellitus [email or web address] Not available 2019 09:36:05 Maternal Grandmother Hypertensive disorder jgumber Not available 2019 09:36:41 Maternal Grandmother Family history of breast cancer [email or web address] Not available 02/06 11:08:55 Mother Diabetes mellitus jgumber Not available 2019 09:36:05 Mother Hypertensive disorder [email or web address] Not available 2021 12:24:34 Father Hypertensive disorder jgumber Not available 2019 09:36:41 Maternal Uncle Hypertensive disorder jgumber Not available 2019 09:36:41 Maternal Aunt Hypertensive disorder jgumber Not available 2019 09:36:41 Brother Seizure disorder [email or web address] Not available 02/06 11:08:55 Maternal Grandfather Family history of malignant neoplasm of lung [email or web address] Not available 02/06 11:08:55 Maternal Grandfather Malignant neoplasm of rectum [email or web address] Not available 02/06 11:08:55 Medical History Condition Response Allergies (Food, seasonal, environmental ) N Other N Drug/Latex Allergies/Reactions N Blood Transfusion N Breast Cancer N Dermatologic Disorders N Lung Disease N Defects or Inherited Disease N Breast Problem N Gestational Diabetes N Hematologic disorders N Anesthesia Complications N History of STI N Deep Vein Thrombosis N Polycystic ovary syndrome N Anxiety Disorder N Autoimmune disease N Arthritis N Polyps N Infertility N Acid Reflux (GERD) N History of abnormal pap N Cancer N Varicosities N Stroke N Neurologic/Epilepsy N Endometriosis N High Cholesterol N Fibromyalgia N Headaches N Kidney Disease N Heart Problems N Thyroid Problems N Kidney or Bladder Problems N GI Problems N Eating Disorder N Anemia N Art (IVF or FET) N Psychiatric Illness N Ovarian Cancer N Diabetes N Pulmonary (TB, Asthma) N Hepatitis/Liver Disease N No Past Medical History N Eczema N Urinary Tract Infection N Abuse/Domestic Violence N Asthma N Trauma/Violence N Depression/ depression N Heart Disease N Pre-Eclampsia N Hypertension N Osteoporosis N Thrombophilias N Gynecological History Statement/Question Response Date of Last Mammogram Flow Light Date of LMP N Was last menstrual period normal N STIs/STDs Y Date of control 01/04/2024 Date of Last Colonoscopy Desired Control Method Sterilizati on Abnormal Pap N On BCP's at Conception? N Colposcopy HPV Vaccine N Current Control Method IUD 17 Age at First Child 17 Are cycles usually normal Y Sexually Active? Y Menses Monthly Y Date of DEXA bone scan Age of first menstrual cycle 17 Date of Last Pap Smear 11/17/2023 Sexual Problems? Y LMP Unknown N Obstetrics History GPAL:G 5 P 3 0 2 3 Type Value Full Term 3 Induced 1 Spontaneous 1 Living 3 Total 5 Past Encounters Encounter ID Performer Location Encounter Start Date Encounter Closed Date Diagnosis/Indication Diagnosis SNOMED-CT Code Diagnosis ICD10 Code Diagnosis IMO Codes Diagnosis Note [id number] Jeanette Oquendo CNM [place] [address],[facility] [[email or web address] [place] [address] 12/26/2019 12:41:39 12/26/2019 22:17:46 Vaginitis 33817886 N76.0 Discussed use of mild soap like dove or ivory, cotton underwear w/out dye, hypoallerg enic detergent, wipe from front to back, avoid tub baths, keep perineum clean and dry, d/c use of baby wipes. Encouraged daily intake of yogurt or womens health probiotic. Internal and external affirm collected. Pt desires extended panel. [id number] Jeanette Oquendo CNM [place] [address] [address] 06/13/2020 11:37:53 06/14/2020 17:01:39 Vaginitis 75978057 N76.0 Discussed use of mild soap like dove or ivory, cotton underwear w/out dye, hypoallerg enic detergent, wipe from front to back, avoid tub baths, keep perineum clean and dry, d/c use of baby wipes. Encouraged daily intake of yogurt or womens health probiotic. Internal and external affirm collected. Will go ahead and treat with clindamyci n based on her last extended panel. Will also send diflucan since she often has yeast after taking antibiotic s. Her partner is uncircumci sed and she is concerned this may be part of the problem. I have encouraged condom use. I also encouraged her to have him seek treatment for the bacteria also. If no improvemen t we need to send to specialist . Urinary tr act infectious disease [id number] N39.0 Trace leuks. Will send for culture. Increase water and decrease caffeine. Consider urologist. [id number] Sandy Rainey [facility] [address],[facility] [[email or web address] [place] [address] 03/26/2021 14:05:14 03/26/2021 16:47:08 Vaginitis 19271954 N76.0 Swab sentTreate d for BVDiscusse d Boric acid suppressiv e therapy with counseling on this products, r/b's, instructio ns.H/O given for further home review.Dhruv l return if any further issues or concerns. Time spent in visit is a total of 26 mins with at least 50% of visit consisting of counseling and review of plan of care.Addit ional precaution lamar measures were taken to minimize potential exposure to the Covid-19 virus during this patient s visit, including available hand financial writer upon arrive, temperatur e check and being asked a series of screening questions. All staff wore face coverings during this encounter, as well as provided additional cleaning and sanitizing of all surfaces, including countertop s, pens, chairs, door handles, light switches, etc, prior to and following the patient s visit. [id number] Sandy Rainey [facility] [address],[place] [address] 05/23/2021 12:44:16 05/23/2021 14:28:22 Gynecologic examination [id number] Z01.419 Take Calcium with Vitamin D 1200mg daily if not receiving in daily diet. It is strongly advised to have an annual flu shot and up can obtain at most pharmacies . If you have not had a TDap shot in the last 10 years you should obtain one as well. Discussed with patient & provided with informatio n regarding Gardisil vaccine to prevent the 4 strains for HPV that cause cervical cancer if under age 26. Encourage safe sexual practices, to use condoms and limit partners if not already in a monogamous relationsh ip. Do monthly self breast exams. Have mammogram yearly or every other year depending on family history. BRCA testing is now available for patients with strong genetic history of female cancer. If interested contact the office. Engage in daily exercise of low impact aerobic exercise 45-60 minutes 4-5 times weekly. Avoid tobacco and illicit drugs as well as using moderation with alcohol intake less than 1-2 8 oz beverages daily. This lifestyle behavior pattern will lead to less health conditions and longer life span. If BMI greater than 25 weight watchers or dietary consult advised. Patient received above instructio ns, and questions have been answered. If you have any questions please call or respond to this email. Patient was made aware of the patient portal and may obtain a paper copy of today's plan if desired. Genetic screen discussedP ap/hpv/STD updatedMam mo-next yearA Mirena IUD prevents for up to 7 years, and also helps with heavy periods for up to 5 years in women who choose an IUD for control. Vaginitis [id number] N76.0 Suspect BV on exam.We discussed Boric acid vaginal suppressiv e therapy along with vijiy jesse toiletries vag probiotic. Follow VCG's are previously instructed .RTO x 2mos med check [id number] SIXTO Franco [place] [address] [address] 11/13/2021 12:17:13 11/13/2021 13:56:44 Contraception care management [id number] Z30.9 Here to get IUD removed as patient thought it was . IUD inserted 10/30/2015 , does not until 10/2022. Discussed this with patient that now prevents for up to 7 years.She would like permanent sterilizat ion.We discussed option of keeping IUD in until tubal to help prevent until the procedure. She would like to keep it in for now and remove at time of tubal.She will schedule an MD consult for tubal Time spent in visit is a total of 20 mins with at least 50% of visit consisting of counseling and review of plan of care. [id number] Юлия Greene AMAURY [place] [address],[place] [address] 01/07/2022 15:05:53 01/07/2022 16:16:19 Contraception care management [id number] Z30.9 Vaginitis 74499470 N76.0 Urine hcg (-)Suspect BV/yeast on examVagini tis panel sentSTI endocervic al testing sentBlood STI testing declinedTr eatment sentVulvar care guidelines discussed in-depthCo ndom use encouraged RTC if symptoms persist past treatment Time spent in visit is a total of 25 mins with at least 50% of visit consisting of counseling and review of plan of care. [id number] SIXTO Franco [place] [address],[place] [address] 11/25/2022 14:12:12 11/25/2022 16:06:24 Vaginitis 80321728 N76.0 suspect BV/yeastva ginitis panel sent, STI endocervic al testing sentvulvar care guidelines discussed in-depthRx sent, R/B/A discussedD ue for WWE, encouraged to schedule this appointmen t Time spent in visit is a total of 25 mins with at least 50% of visit consisting of counseling and review of plan of care. Venereal d isease screening [id number] Z11.3 [id number] Юлия Greene AMAURY [place] [address],[place] [address] 04/02/2023 11:07:55 04/02/2023 14:09:21 Urinary symptoms 815091966 R39.9 suspect UTIcx sentrx sent, r/b/a reviewedin crease water intake, decrease fluidvagin itis/STI panel sent per pt requestRTC for WWE or sooner if needed Patient is to contact office or go to nearest ED/Urgent care if fever >/= 100.1, pain, excessive bleeding, unusual drainage or swelling in area of concern; or experienci ng worsening sx's or new onset of concerning sx's. Understand ing verbalized . All questions answered to patient satisfacti on. Time spent in visit is a total of 25 mins with at least 50% of visit consisting of counseling and review of plan of care. Venereal d isease screening 021060411 Z11.3 N76.0 Vaginal discharge 983576 006 N89.8 [id number] Sandy Rainey , [facility] [address],[place] [address] 11/17/2023 13:52:12 11/17/2023 16:39:51 Vaginitis 04726958 N76.0 Prominent yeast on exam.Rx sent Counseled on medication R/B's, Most common side effects, & use. All questions were answered to patient satisfacti on. Pruritic rash 25299834 L 28.2 Use under breasts prnGold dennison powder prn Adult heal th examination 106945565 Z00.00 Vitamin D deficiency 347 13945 E55.9 Gynecologi c examination 83354966 Z11.51 Z11.3 Z11.8 Take Calcium with Vitamin D 1200mg daily if not receiving in daily diet. It is strongly advised to have an annual flu shot and up can obtain at most pharmacies . If you have not had a TDap shot in the last 10 years you should obtain one as well. Discussed with patient & provided with informatio n regarding Gardisil vaccine to prevent the 4 strains for HPV that cause cervical cancer if under age 26. Encourage safe sexual practices, to use condoms and limit partners if not already in a monogamous relationsh ip. Do monthly self breast exams. Have mammogram yearly or every other year depending on family history. BRCA testing is now available for patients with strong genetic history of female cancer. If interested contact the office. Engage in daily exercise of low impact aerobic exercise 45-60 minutes 4-5 times weekly. Avoid tobacco and illicit drugs as well as using moderation with alcohol intake less than 1-2 8 oz beverages daily. This lifestyle behavior pattern will lead to less health conditions and longer life span. If BMI greater than 25 weight watchers or dietary consult advised. Patient received above instructio ns, and questions have been answered. If you have any questions please call or respond to this email. Patient was made aware of the patient portal and may obtain a paper copy of today's plan if desired. Pap/hpv sent STD Screen sent Genetic Screen discussed Colon Screen na Dexa Screen na Routine Labs ordered Screening mammography 24 614574 Z12.31 FaxedCall to schedule Contracept ion care management 766719940 Z30.9 Mirena IUD x 1mosPlease abstain until IUD is replaced, get HCG blood done and then can have IUD removed/re placed lesa. [id number] SIXTO Franco [place] [address],[place] [address] 01/04/2024 15:45:23 01/04/2024 16:59:56 Screening procedure 10663832 Z13.9 Urinary symptoms 7582998 08 R39.9 Venereal d isease screening 241224599 Z11.3 N76.0 Insertion of intrauterine contraceptive device 55894320 Z30.430 Removal of intrauterine contraceptive device done 0605634254 26724 Z30.432 R/b of IUD removal/re placement discussed and accepted by patientUPT (-), gc/ct/tric h testing sentIUD removed and replacedpr ecautions discussedR TC for string check in 4-6 weeks [id number] SIXTO Franco [place] [address],[place] [address] 01/24/2025 16:27:23 01/25/2025 10:08:52 Contraception care management 257123541 Z30.9 68303017 Irregular periods 034964 07 N92.6 06479 UPT (-)normal appearing IUD strings noted on examlabs ordered , pelvic u/s orderedpre cautions discussed , RTC for pelvic u/s and f/u to review/dis cuss next steps Vitamin D deficiency 347 04993 E55.9 89542 Vulval irritation 863558 003 N90.89 1817846 vaginitis/ STI panel sentvulvar care guidelines discussedR x sent for yeast, r/b/a reviewed Time spent in visit is a total of 35 mins with at least 50% of visit consisting of counseling and review of plan of care. Intrauteri ne contraceptive device in situ 673913819 Z30.431 06671123 [id number] Celestine Gordon MD [place] [address],[place] [address] 02/02/2025 16:50:57 02/02/2025 17:43:17 Irregular periods 22190163 N92.6 T83.39XA 88468 [id number] Юлия GreeneSIXTO [place] [address],[place] [address] 02/07/2025 16:40:06 02/08/2025 11:58:11 Contraception care management 788072509 Z30.9 [id number] Today we reviewed her u/s and discussed options (IUD removal/re placement, alternativ e contracept ion options, etc)opts for IUD removal , offered to be done today (declined) She desires permanent sterlizati on , scheduled for MD consultcon doms use encouraged Discussed with patient risks, benefits, and alternativ es of contracept ion. Discussed all options, including natural family planning, condoms, combined oral contracept paul, contracept radha patch, Nuva-ring, Depo-Prove ra, Nexplanon, intrauteri ne device, and sterilizat ion (tubal ligation, vasectomy) . Advised that of the above listed options, only condoms can prevent sexually transmitte d infections and that condoms can be used together with any form of contracept ion. Time spent in visit is a total of 30 mins with at least 50% of visit consisting of counseling and review of plan of care. Malpositio n of intrauterine contraceptive device [id number] 1524807 T83.32XD [id number] Celestine Gordon MD [place] [address],[place] [address] 02/17/2025 11:08:49 02/20/2025 09:23:40 Contraception care management 990105523 Z30.9 88683636 Discussed all control options in great detail. Pt would like to start POP. She is aware of the risks and benefits. She is aware it is not effective for control the first month. She is also aware of the importance of taking at the same time every day. Encouraged use of condoms as the pill does not protect against STI's.rx slynd Removal of intrauterine contraceptive device 5602235544 Z30.617 2250718 r/b discussed with ptIUD removed per pt requestpt desires permanent sterlizati on, she will f/u with Dr. Gordon for consult Health Concerns Section Related Observation LastModified by Organization Detai ls LastModified Time None Recorded Concern Status LastModified by Organization Details LastModified Time None Recorded Advance Directives Directive N: Payers Insurance Date Sequence Insurance Name Policy Number Policy Gallegos Covered Member ID Gallegos Member ID Guarantor Name 10/30/2021 1 [facility] PRIOR TO 12/06/2020 (MEDICAID REPLACEMENT - HMO) Manisha English [id number] Manisha English 04/01/2025 1 [facility] ON OR AFTER 12/06/20 (MEDICAID REPLACEMENT - HMO) Manisha English [id number] Manisha English Notes Date Note Type Note Provider Name and Address Organization Details Recorded Time 01/04/2024 text/html 43yopresents for mirena IUD removal/replacementc urrent IUD inserted 10/30/2015 ()she has been abstaining from IC since 12/02/2023 SIXTO Franco [address], [place], [address], [facility] 01/04/2024 16:51:08 01/24/2025 text/html Vaginal/Vulvar ProblemReported by Patient 44yoPresents for evaluation of prolonged spotting. Has Mirena IUD (inserted 01/04/2024). For the past few months has had spotting on and off, comes and goes about every other week. She has been having some mild cramping with the spotting. Also experiencing vulvar itching and irritation. SA with male partner, no new partners. SIXTO Franco [address], [place], [address], [facility] 01/25/2025 09:17:50 02/07/2025 text/html 44yoPresents for pelvic u/s f/uu/s done d/t spotting on and off x 2 monthsu/s done 02/02 shows right arm and shaft of IUD seen, left arm possibly failed to deploy She desires permeant sterlization SIXTO Franco [address], [place], [address], [facility] 02/08/2025 10:32:56 02/17/2025 text/html Patient presents for IUD removal SIXTO Franco [address], [place], [address], [facility] 02/20/2025 10:09:40 OBGyn Episode Ob Episode Information Episode Created Date Number of Fetuses Patient Bloodtype Patient rh Status Prepregnancy Weight lbs Domestic Partner Domestic Partner Phone Father Name Telemarketing Sales Representative Status 12/26/19 20 1 CLOSED Fetus Data First Name Last Name Admitted to NICU Weight (g) Sex Living Outcome Pediatric Complications Fetus ID Race Codes Race Delivery Type 3912.23 1 M Full Term 3000 Vaginal Delivery Arnold Calculation Initial Arnold Date Initial Exam Date Initial Exam Provider Initial Ultrasound Date Last Menstrual Period Date Ultra Sound Weeks Gestation 0 Eighteen To Twenty Week Arnold Update Ultra Sound Date Fundal Height At Umbil Quickening Date Ultra Sound Latest Weeks Gestation Final Arnold Confirmed By Final Arnold Confirmed Date Final Arnold Date Ultra Sound Latest Days Gestation 0 0 Menstrual History Last Menstrual Date Menses Monthly On Bcp Conception Prior Menses Frequency Hcg Plus Date Menarche Onset Age Delivery Information Delivery Date Delivery Type Labor Anesthesia Weeks Gestation Incision Type Labor Labor Length Hrs Delivered By Post Complications Tubal Sterilization Discharge Date Comments 1 40 maged Discharge Information Feeding Method Contraceptive Method Maternal HG B and HCT Levels Ob Episode Information Episode Created Date Number of Fetuses Patient Bloodtype Patient rh Status Prepregnancy Weight lbs Domestic Partner Domestic Partner Phone Father Name Telemarketing Sales Representative Status 12/26/19 20 1 CLOSED Fetus Data First Name Last Name Admitted to NICU Weight (g) Sex Living Outcome Pediatric Complications Fetus ID Race Codes Race Delivery Type 2692.97 5704 F Full Term 3001 Vaginal Delivery Arnold Calculation Initial Arnold Date Initial Exam Date Initial Exam Provider Initial Ultrasound Date Last Menstrual Period Date Ultra Sound Weeks Gestation 0 Eighteen To Twenty Week Arnold Update Ultra Sound Date Fundal Height At Umbil Quickening Date Ultra Sound Latest Weeks Gestation Final Arnold Confirmed By Final Arnold Confirmed Date Final Arnold Date Ultra Sound Latest Days Gestation 0 0 Menstrual History Last Menstrual Date Menses Monthly On Bcp Conception Prior Menses Frequency Hcg Plus Date Menarche Onset Age Delivery Information Delivery Date Delivery Type Labor Anesthesia Weeks Gestation Incision Type Labor Labor Length Hrs Delivered By Post Complications Tubal Sterilization Discharge Date Comments 8 40 yuri Discharge Information Feeding Method Contraceptive Method Maternal HG B and HCT Levels Ob Episode Information Episode Created Date Number of Fetuses Patient Bloodtype Patient rh Status Prepregnancy Weight lbs Domestic Partner Domestic Partner Phone Father Name Telemarketing Sales Representative Status 12/26/19 20 1 CLOSED Fetus Data First Name Last Name Admitted to NICU Weight (g) Sex Living Outcome Pediatric Complications Fetus ID Race Codes Race Delivery Type , Induced 3002 Arnold Calculation Initial Arnold Date Initial Exam Date Initial Exam Provider Initial Ultrasound Date Last Menstrual Period Date Ultra Sound Weeks Gestation 0 Eighteen To Twenty Week Arnold Update Ultra Sound Date Fundal Height At Umbil Quickening Date Ultra Sound Latest Weeks Gestation Final Arnold Confirmed By Final Arnold Confirmed Date Final Arnold Date Ultra Sound Latest Days Gestation 0 0 Menstrual History Last Menstrual Date Menses Monthly On Bcp Conception Prior Menses Frequency Hcg Plus Date Menarche Onset Age Delivery Information Delivery Date Delivery Type Labor Anesthesia Weeks Gestation Incision Type Labor Labor Length Hrs Delivered By Post Complications Tubal Sterilization Discharge Date Comments 4 Discharge Information Feeding Method Contraceptive Method Maternal HG B and HCT Levels Ob Episode Information Episode Created Date Number of Fetuses Patient Bloodtype Patient rh Status Prepregnancy Weight lbs Domestic Partner Domestic Partner Phone Father Name Telemarketing Sales Representative Status 12/26/19 20 1 CLOSED Fetus Data First Name Last Name Admitted to NICU Weight (g) Sex Living Outcome Pediatric Complications Fetus ID Race Codes Race Delivery Type 3061.74 6 F Full Term 3003 Vaginal Delivery Arnold Calculation Initial Arnold Date Initial Exam Date Initial Exam Provider Initial Ultrasound Date Last Menstrual Period Date Ultra Sound Weeks Gestation 0 Eighteen To Twenty Week Arnold Update Ultra Sound Date Fundal Height At Umbil Quickening Date Ultra Sound Latest Weeks Gestation Final Arnold Confirmed By Final Arnold Confirmed Date Final Arnold Date Ultra Sound Latest Days Gestation 0 0 Menstrual History Last Menstrual Date Menses Monthly On Bcp Conception Prior Menses Frequency Hcg Plus Date Menarche Onset Age Delivery Information Delivery Date Delivery Type Labor Anesthesia Weeks Gestation Incision Type Labor Labor Length Hrs Delivered By Post Complications Tubal Sterilization Discharge Date Comments 0 39 kemoria Discharge Information Feeding Method Contraceptive Method Maternal HG B and HCT Levels Ob Episode Information Episode Created Date Number of Fetuses Patient Bloodtype Patient rh Status Prepregnancy Weight lbs Domestic Partner Domestic Partner Phone Father Name Telemarketing Sales Representative Status 12/26/19 20 1 CLOSED Fetus Data First Name Last Name Admitted to NICU Weight (g) Sex Living Outcome Pediatric Complications Fetus ID Race Codes Race Delivery Type , Spontane ous 3004 Arnold Calculation Initial Arnold Date Initial Exam Date Initial Exam Provider Initial Ultrasound Date Last Menstrual Period Date Ultra Sound Weeks Gestation 0 Eighteen To Twenty Week Arnold Update Ultra Sound Date Fundal Height At Umbil Quickening Date Ultra Sound Latest Weeks Gestation Final Arnold Confirmed By Final Arnold Confirmed Date Final Arnold Date Ultra Sound Latest Days Gestation 0 0 Menstrual History Last Menstrual Date Menses Monthly On Bcp Conception Prior Menses Frequency Hcg Plus Date Menarche Onset Age Delivery Information Delivery Date Delivery Type Labor Anesthesia Weeks Gestation Incision Type Labor Labor Length Hrs Delivered By Post Complications Tubal Sterilization Discharge Date Comments 8 Discharge Information Feeding Method Contraceptive Method Maternal HG B and HCT Levels
--- OUTSIDE RECORDS SUMMARY | 2025-04-04 00:18 | XMS_ITS | Clinical Summary ---
Author Organization [facility] Address [address] [place] [id number] Care Team Providers Care Speech Lang Path Name Role Phone Unavailable Primary Care Provider Unavailabl e Social History Tobacco Use Types Packs/Day Years Used Date Smoking Tobacco: Never Assessed Comments Unknown Sex and Gender Information Value Date Recorded Sex Assigned at Not on file Legal Sex Female 4:56 PM CDT Gender Identity Not on file Sexual Orientation Not on file Plan of Treatment Health Maintenance Due Date Last Done Comments Cervical Cancer Screening Pa p Smear (Age 30 to 64) Every 3 Years 1981 Annual Physical 1984 Hepatitis C 12/01/1999 DTaP, Tdap and Td Vaccines ( 1 - Tdap) 2000 Hepatitis B Vaccines (1 of 3 - 19+ 3-dose series) 2000 HPV Vaccines (1 - 3-dose SCD M series) 2008 Cervical Cancer Screening Pa p with HPV Testing (Age 30 to 64) Every 5 Years 12/01/2011 Cervical Cancer Screening with HPV 12/01/2011 Mammogram Screening 2021 COVID-19 Vaccine (2024-2 6 season) 2025 Influenza Adult (#1) 2025 Hepatitis A Vaccines Aged Out No long er eligible based on patient's age to complete this topic Meningococcal B Vaccine Aged Out No l onger eligible based on patient's age to complete this topic Meningococcal Vaccine Aged Out No raissa janel eligible based on patient's age to complete this topic Pneumococcal Vaccine: Pediat rics (0 to 5 Years) and At-Risk Patients (6 to 49 Years) Aged Out No longer eligible b ased on patient's age to complete this topic RSV Immunizations Under 20 Months Aged Out No longer eligible based on patient's age to complete this topic
[2025-04-04 08:55] LABS: BEDSIDEPREGUCG Negative (Negative)
[2025-04-04] MEDS: LACTATED RINGERS 1,000 ML 30 ML IV CONT ×2 (09:00→11:16)
[2025-04-04] MEDS: KETOROLAC 15 MG/ML VIAL (*BKC) IV PUSH (09:02)
[2025-04-04] MEDS: ACETAMINOPHEN 500 MG TABLET 1000 MG PO (09:02)
--- NOTE | 2025-04-04 09:49 | P.HP_ITS ---
H&P: HPI History of Present Illness Date/Time: 04/04/25 09:49 Chief Complaint: Unwanted fertility Narrative: This patient is a 44-year-old with unwanted fertility. We have agreed to perform laparoscopic bilateral salpingectomy. She understands the risks, benefits, and alternatives. She has completed informed consent process is ready to proceed. The patient understands the details of the procedure. The procedure has been explained in detail. She understands the risks. She understands that injuries may occur that result in hospitalization, more surgery, and severe illness. She understands risk of hemorrhage and infection. She denies any chest pain or shortness of breath. She denies any nausea, vomiting, fever, chills. Review of Systems Review of Systems: All systems reviewed & are unremarkable except as noted in HPI and below Constitutional: Constitutional: Denies chills, Denies fatigue, Denies fever(s) and Denies weakness Eyes: Eyes: Denies blurry vision, Denies change in vision, Denies loss of peripheral vision, Denies loss of vision, Denies other visual disturbances and Denies eye pain ENT: Denies vertigo, Denies dizziness, Denies hearing loss, Denies mouth pain, Denies nasal obstruction, Denies neck mass and Denies neck pain Cardiovascular: Cardiovascular: Denies chest pain, Denies diaphoresis, Denies syncope, Denies leg edema and Denies dyspnea Respiratory: Respiratory: Denies chest congestion, Denies cough, Denies hemoptysis, Denies dyspnea and Denies wheezing Gastrointestinal: Gastrointestinal: Denies abdominal pain, Denies constipation, Denies diarrhea, Denies nausea and Denies vomiting Genitourinary: Genitourinary: Denies hematuria, Denies change in libido, Denies nocturia, Denies genital lesions, Denies flank pain and Denies urinary urgency Musculoskeletal: Musculoskeletal: Denies abnormal gait, Denies back pain, Denies myalgias, Denies arthralgias, Denies joint swelling, Denies muscle weakness and Denies neck pain Integumentary/Breasts: Skin/Breast: Denies swelling, Denies breast pain, Denies breast mass, Denies dry skin, Denies nipple discharge, Denies unusual bruising and Denies jaundice Neurologic: Denies Neuro-related abnormal movements, Denies Abnormal speech present, Denies abnormal gait, Denies behavioral changes, Denies confusion, Denies vertigo, Denies dizziness, Denies syncope, Denies loss of vision, Denies memory loss, Denies convulsions and Denies weakness Psychiatric: Psychiatric: Denies abnormal sleep pattern, Denies behavioral changes, Denies change in libido, Denies confusion, Denies depression, Denies anhedonia and Denies memory loss Endocrine: Endocrine: Reports no additional endocrine complaints, Denies change in libido and Denies fatigue Hematologic/Lymphatic: Hematologic/Lymphatic: Reports no additional hematologic/lymphatic complaints Allergic/Immunologic: Allergic/Immunologic: Reports no additional allergic/immunologic complaints and Denies wheezing PMFSH Social History Social History Smoking status: Never smoker Living arrangements: with family Spiritual care concerns: No Meds Home Medications and Allergies Home Medications ?Medication ?Instructions ?Recorded ?Confirmed ?Type No Home Medications 03/28/25 03/28/25 H istory Allergies Allergy/AdvReac Type Severity Reaction Status Date / Time No Known Allergies Allergy Verified 04/04/25 08:50 Vital Signs Vital Signs - 24 hr 04/04/25 08:35 Temperature 98.9 F Pulse Rate 74 Respiratory Rate 16 Blood Pressure 118/79 Pulse Oximetry 99 Oxygen Delivery Room Air Exam Const: General: cooperative, healthy appearing, comfortable and no acute distress Orientation/consciousness: oriented to person, oriented to place and oriented to time HENMT: Head: normal to inspection Ears: external ears normal Face/Nose/Sinus: Normal external nose present and normal facial exam Face and sinus: normal facial exam Eyes: General: appearance normal, both eyes and all related structures Neck: Neck: normal visual inspection, trachea midline and supple Resp: Auscultation: clear to auscultation bilaterally, no crackles, no rales, no rhonchi and no wheezes Cardio: Rate: regular rate Rhythm: regular rhythm Heart sounds: no click, no murmurs and no rubs GI: GI Palp: No abdominal tenderness, No Soft to palpation, No Tenderness to palpation present (GI) and No Palpable mass present Auscultation: normal bowel sounds Skin: General skin exam: normal color and no rashes or lesions noted Neuro: General: oriented to person, oriented to place and oriented to time Extrem: General: normal to inspection, no joint enlargement, no clubbing, cyanosis or edema, no pedal edema and no calf tenderness Psych: Appearance: grossly normal Mental Status: mental status grossly normal Speech and movement: Normal speech and movement present Assessment and Plan Assessment and plan (1) Unwanted fertility: Code(s): Z30.09 - Encounter for other general counseling and advice on contraception Status: Acute Plan This patient is a 44-year-old with unwanted fertility. We have agreed to perform laparoscopic bilateral salpingectomy. She understands the risks, benefits, and alternatives. She has completed informed consent process is ready to proceed.
--- NOTE | 2025-04-04 09:51 | WPDHPUPDATE1 ---
History and Physical Update Update Date/Time: 04/04/25 09:51 History and Physical has been reviewed, including an updated exam of the patient. There are NO changes in the patient's condition. Risks, benefits, and alternatives have been discussed and questions answered. Patient agrees to proceed with procedure.
--- NOTE | 2025-04-04 10:11 | WPDANESEPPF ---
Anes - Initial Pre Proc Eval Procedure: Operation Date: 04/04/25 10:30 Proposed Procedures p Laparoscopic Bilateral Salpingectomy - Celestine Gordon MD Date/Time: 04/04/25 10:11 Surgeon: Celestine Gordon MD Pre Op Diagnosis: Desire Sterilization Patient Data Age: 44 Gender: F Height: 1.75 m Weight: 120.7 kg Last Vital Signs Temp 98.9 F 04/04/25 08:35 Pulse 74 04/04/25 08:35 Resp 16 04/04/25 08:35 BP 118/79 04/04/25 08:35 Pulse Ox 99 04/04/25 08:35 O2 Del Method Room Air 04/04/25 08:35 Allergies Allergy/AdvReac Type Severity Reaction Status Date / Time No Known Allergies Allergy Verified 04/04/25 08:50 Home Medications ?Medication ?Instructions ?Recorded ?Confirmed ?Type No Home Medications 03/28/25 03/28/25 History Laboratory Tests 04/04/25 08:50 POC Urine HCG, Qual Negative (Negative) Patient hx anesthesia problems: none Family hx anesthesia problems: none Results Review: All pre-operative results and documents have been reviewed as part of the pre-operative evaluation. [facility] Social History Social History Smoking status: Never smoker Living arrangements: with family Spiritual care concerns: No Anes - Eval Final PreProcedure Day of Procedure 04/04/25 10:11 Patient weight: obese Lungs: normal air movement Airway: Mallampati scale class II and special considerations (Upper dentures, lower intact. ) Neurological: alert and oriented Last oral intake: >/= 8 hours ASA classification: II Emergent: no Anesthetic plan: proceed Anesthesia type and monitoring: general ETT and standard monitoring Results Review: All pre-operative results and documents have been reviewed as part of the pre-operative evaluation. 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 Informed Consent: The patient's anesthetic plan and its attendant risks and benefits were discussed with the patient/family/POA. Questions were solicited and answers provided to the satisfaction of the patient/family/POA.
--- NOTE | 2025-04-04 10:57 | S_PTH ---
PATIENT: Manisha English LOC: [facility] U#:[id number] AGE/SX: 44/F ROOM: RE04/04/[address]: Celestine Gordon MD : 1980 BED: DIS: 04/04/2025 SPEC #: [id number] RECD: 04/04/25 11:38 STATUS: KYARA REQ #: [id number] SIMEON: 04/04/25 10:[address]: Celestine Gordon DEPT: [facility] Surgical RECD BY: Emily Worrell ENTERED: 04/04/25 11:38 SP TYPE: Surgical OTHR DR: STRUCTURAL ANALYSIS ENGINEER PHYSICIAN Tissues: A - Fallopian Tube Bilateral Procedures: Gross and Microscopic Level 2 Hematoxylin and Eosin Stain
--- NOTE | 2025-04-04 11:05 | W.PM.PROC2 ---
Procedure Note - Detailed Date of Procedure 04/04/25 Pre-op Diagnosis Desire Sterilization Post-op Diagnosis Same Procedure Performed Laparoscopic bilateral salpingectomy Surgeon Celestine Gordon MD Anesthesia General Indications Unwanted fertility Findings Thin wispy adhesions in the left adnexa uterine fundus. Otherwise normal pelvic and Description of Procedure The patient was taken the operating room. She was prepped and draped in the dorsal lithotomy position after induction of general anesthesia. A 5 mm skin incision was made in the left upper quadrant of the abdominal skin. A 5 mm trocar was inserted the intra-abdominal cavity under direct visualization of the scope. Pneumoperitoneum was achieved. A 5 mm trocar was inserted in the left lower quadrant identical fashion. A 5 mm infraumbilical trocar was inserted in identical fashion as well. The bilateral fallopian tubes were removed. This was done by using a LigaSure cautery. The mesosalpinx adjacent to the tube was cauterized transected with LigaSure. This was initiated in the area the ovary and in a stepwise fashion moved medially to the area of the cornu of the uterus. Once there the fallopian tube was cauterized and transected. This was done in identical fashion on each side. The fallopian tubes were taken out through the left lower quadrant trocar site. The pneumoperitoneum was reduced. The trocars removed. The skin was closed with subcuticular 4 Monocryl and covered with Dermabond. She was taken to cover stable condition. Sponge lap and needle counts were correct x2. Estimated Blood Loss 5 Drains No Packing No Pathology Yes Complications No immediate complications Condition Stable Disposition PACU
[2025-04-04] MEDS: fentaNYL CITRATE INJ (*CRX) 100 MCG/2 ML VIAL 25 MCG IV PUSH ×6 (11:33→12:06)
[2025-04-04] MEDS: oxyCODONE HCL (*CRX) 5 MG TAB IR PO (12:45)
== END 2025-04-04 13:24 | disposition home or self-care (01) ==
PROVIDERS: Visit Provider Obstetrics & Gynecology
PROC: (CPT 49320; principal; 2025-04-04 10:30)
DX: Z30.2 Encounter for sterilization (principal); E66.9 Obesity, unspecified; Z68.39 Body mass index [BMI] 39.0-39.9, adult
CPT/HCPCS: 58661; 88302; A9270; J1100; J1885; J2003; J2250; J2405; J2704; J3010; J7030; J7120